=== PATIENT | male | born 1945 | race Caucasian/White ===

== ENCOUNTER 2016-10-30 03:50 | Inpatient (IN) | payer OTHER ==
[~2016-10-30] VITALS: Ht 182.9 cm; Wt 129.3 kg
[~2016-10-30 03:50] MED LIST: AMLODIPINE BESY10 M1 PO; ASPIRIN EC325 MG PO; ATORVASTATIN CA20 MG PO; AUGMENTIN 875 M1 TAB PO; COZAAR50 M1 PO; FLOMAX0.4 M1 PO; PANTOPRAZOLE SO40 M1 PO; PERCOCET 325 MG1 TA2 PO; TRIAMTERENE-HC1 EAC3 PO
--- NOTE | 2016-10-30 10:25 | Operative Report ---
Operative/Inv Procedure Report Surgery Date: 10/30/16 Name of Procedure: C3/4 acdf, use of synthese anterior plating system, use of peek intervertebral device, use of autograft,m use of allograft, use of microscope, use of flouroscope Pre-Operative Diagnosis: cervical myelopathy Post-Operative Diagnosis: same Estimated Blood Loss: less than 50ml Surgeon/Systems Operator: ofelia glover md, DEYSI HAQ,CARISSA Rod Anesthesia: general endotracheal tube Operative/Procedure Note Note: After successful administration of general endotracheal anesthesia all lines tubes and monitors placed by the anesthesia team the patient was positioned supine with his head gently extended his arms taped underside to facilitate radiographic expose the anterior cervical spine. We used the fluoroscope to plan the skin incision the left anterior neck over the C3 4 disc space. The patient was prepped and draped in usual standard fashion and 10 mL of lidocaine with epinephrine was infiltrated in subcutaneous tissues and a #15 blade was used to incise the anterior neck. This was deepened down electrocautery to the platysma, which was divided. Sharp dissection was carried down medial to the carotid sheath lateral to the trachea and esophagus down to the deep cervical fascia. The deep cervical fascia was divided with the bipolar cautery and Bovie electric cautery, we elevated the longus coli bilaterally. We inserted [place] spinal needle C3 4 disc space. Fluoroscope confirm level was confirmed we used a Kerrison and pituitaries to remove the anterior osteophytes. The disc was removed using curettes and pituitary rongeurs, [place] pins were inserted C3 4 bodies and gentle in-line distraction was used. We then brought the microscope in for deep dissection we elevated the PLL with an upgoing curet and removed with a resected with a Kerrison punch provided generous foraminotomies bilaterally with the Kerrison punches and the high-speed drill. The cartilaginous and bony endplates were removed. After satisfied with her bony and ligamentous decompression motors and sensors were stable and trialed 7 mm spacer this the appropriate size. Prepacked the cage with morselized autograft and she was bone matrix putty and tamped in place under fluoroscopic guidance. The [place] pins removed and the holes waxed with bone wax. We then secured in place a 40 mm plate with 4.0 by 16 mm screws. The fluoroscope was used to confirm all hardware position a locking screws were engaged motors and sensors were stable. Then irrigated the wound remove the retractors to separate stab incision #7 MEHNAZ drain the closed wound in layers using 2-0 Vicryl for platysmal 2 -0 Vicryl for deep dermis and skin was closed a running subcuticular address this was applied and the case all needle counts sponge and instruments were correct. The patient was taken to recovery in stable condition
--- NOTE | 2016-10-30 10:50 | Operative Report ---
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 Anesthesia: general endotracheal tube Monitors: Neurophysiologic monitoring IV Fluids: 1.5 L crystalloid Implants: Synthes Vectra plate, peek interbody cage Urine Output: 200 mL via Peters Drains: Medium MEHNAZ Specimens: C3 4 disc material Complications: None Condition: Stable Operative Indication: Patient is a 71-year-old gentleman who presents with progressive cervical myelopathy related to a a central C3 4 disc herniation superimposed on disc osteophyte complexes resulting in a high grade canal stenosis, cord compression, and focal area of cord signal abnormality. Clinical exam is consistent with myelopathy. Patient was previously scheduled for surgery but it was deferred secondary to failed medical preop clearance. Patient subsequently underwent cardiac and pulmonary evaluation and has now been cleared to move forward with the planned procedure. Risks benefits and alternatives have been explained to the patient in detail. He understood and elected to proceed. Written operative consent was obtained. Operative/Procedure Note Note: Patient was taken to the operating room. After appropriate patient identification, neurophysiologic monitoring leads were placed and baseline recordings were obtained. Patient underwent smooth induction of general endotracheal anesthesia without complication. Peters catheter was sterilely inserted. DVT prophylaxis utilized throughout the case. Patient given 1 g IV vancomycin in Preoperative Prophylaxis. he Was Positioned Supine on the Operating Table with the Neck Slightly Extended on a Donut and Shoulders Retracted Downward with Tape. The left Ventral Neck Widely Prepped and Draped Usual Sterile Fashion Using Probe Iodine Solution. A Transverse Linear Skin Incision Was Marked Overlying C3/4 interspace and confirmed with the lateral fluoroscopy skin incision made with a 10 blade knife. Dissection was carried down through the subcutaneous tissue with the Bovie to the platysma which was undermined elevated and divided. Subplatysmal planes were created rostrally and caudally. Medial sternocleidomastoid muscle was identified and the overlying fascia incised. A combination of digital and blunt dissection was used medial to the sternalcleidomastoid and lateral to the trachea and esophagus down to the prevertebral fascia. Fascia was incised with the Bovie and swept off the ventral vertebral bodies with a peanut. Disc spaces were identified. A small gauge spinal needle was placed superficially in the presumed C34 interspace and a lateral fluoroscopic x -ray obtained and confirmed this to be C34. The longus coli muscle was reflected bilaterally and self-retaining retractors were placed beneath the muscle. An annulotomy was made with a 15 blade knife. [place] pins placed in the C3 and C4 vertebral body of the disc space gently distracted. A complete discectomy was performed using combination of straight and angled curettes and pituitary rongeurs. Kerrison rongeurs were used to resect to the endplate osteophytes. Posterior longitudinal ligament was elevated and sequentially resected with the Kerrisons and an excellent decompression of the underlying dural sac and C4 nerve roots completed. With the decompression completed, the cartilaginous endplates were stripped and the endplates of C3 and C4 were decorticated for arthrodesis. After appropriate trials, an 7 mm Synthes axis cage was selected. It was filled with morcellated autograft from the osteophytectomy and DBM and gently tamped into the interspace under direct and fluoroscopic guidance and countersunk by approximately 1-2 mm. [place] pins were removed in a small amount of bone bleeding easily controlled with bone wax. The ventral aspect the C3 and 4 were contoured with the drill to facilitate placement of the anterior plate. 14mm Vectra anterior titanium plate was selected and provisionally placed from C3 to C4 with a plate-holding pin. Under fluoroscopic guidance, the plate was then affixed to the C3 and C4 vertebral bodies using a series of 4 16 mm screws placed with the trajectories slightly divergent from the vertebral endplates and medial. Screws were all finally tightened applying the locking mechanism. Final AP and lateral x-rays were obtained and saved and showed excellent position of the instrumentation. Meticulous hemostasis was achieved. The wound was copiously irrigated. A medium MEHNAZ drain placed into the wound and secured to the skin with a 2-0 nylon suture. Neurophysiologic monitoring was stable and wound closure begun. Platysma was reapproximated with interrupted 2-0 Vicryl suture. The skin was closed in layers with interrupted 2-0 Vicryl suture in the dermis and a running 4-0 Vicryl subcuticular stitch in the skin. The wounds clean and dry. Steri- Strips and a sterile occlusive dressing was placed. Patient was awakened in the operating room, placed in a hard cervical collar, extubated, and taken to PACU in stable condition. He was noted to be moving all 4 extremities at the completion of the case. All sponge, needle, and instrument counts were correct at the completion of the procedure 3. Neurophysiologic monitoring was stable. Discharge Disposition: PACU
--- NOTE | 2016-10-30 13:07 | RADIOLOGY REPORT ---
EXAMINATION: XR CERVICAL SPINE CLINICAL INFORMATION: Anterior cervical discectomy and fusion performed at C3-C4. COMPARISON: CT cervical spine, 07/21/2016. TECHNIQUE: Intraoperative fluoroscopic imaging of the cervical spine was utilized. Number of images: 2. Fluoroscopy time: 0.11 minute FINDINGS: Fluoroscopic imaging assistance was provided 4 C3-C4 discectomy and fusion. Patient is intubated within the operating room. The C3-C4 anterior fusion plate and screws, and intervertebral spacer, are in satisfactory position. The visualized upper cervical vertebra have normal alignment. There is prevertebral soft tissue swelling. IMPRESSION: Intraoperative fluoroscopic images demonstrate expected surgical changes from C3-C4 discectomy and anterior fusion.
--- NOTE | 2016-10-30 14:09 | PN- Neurosurgical ---
Subjective Subjective: Post op check Awake and alert post op Complaining of c collar uncomfortable in the back but otherwise without complaints No surgical pain No nausea Objective Vital Signs and I&Os Intake & Output 10/30 1600 10/30 0810/30 0000 10/29 0810/29 0000 Intake Total Output Total Balance Patient 285 lb Weight Weight Reported by Patient Measurement Method Physical Exam: General: alert and oriented times three chest: clear anteriorly bilaterally, RRR Abd: soft, positive bs Ext: warm, no edema, positive sensate all 4 ext, good 5/5 ALLYN all 4 ext, no calf tenderness Wound: dressed, dry MEHNAZ: small amount of serosang output in bulb Urine: await void post op Current Medications: Current Medications Sig/Neena Start time Last Medication Dose Route Stop Time Status Admin Acetaminophen 650 MG Q4P PRN 10/30 1115 AC PO Acetaminophen/ 1 TAB Q4P PRN 10/30 1115 AC Hydrocodone Bitart PO Acetaminophen/ 2 TAB Q4P PRN 10/30 1115 AC 10/30 Hydrocodone Bitart PO 1334 Bisacodyl 10 MG DAILY NEEDED PRN 10/30 1115 AC VT Diazepam 5 MG Q8P PRN 10/30 1115 AC PO Docusate Sodium 100 MG BID 10/30 2200 AC PO Heparin Sodium 5,000 UNIT Q8 10/31 0600 AC (Porcine) SC Hydromorphone HCl 1 MG Q6P PRN 10/30 1130 AC IV Ondansetron HCl 4 MG Q6P PRN 10/30 1115 AC IV Sodium Chloride 1,000 ML Q12H 10/30 1115 AC 10/30 IV 10/31 1114 1335 Vancomycin HCl 1,000 MG 0800,10/30 AC Sodium Chloride 250 ML IV 11/01 0859 Assessment/Plan Assessment/Plan 71 yo male s/p acdf await void Pain management - vicodin/dilaudid for breakthrough valium prn vanco while drain is in place drain to bulb suction c collar at all times - may change to soft collar while sleeping Core Measures/Miscellaneous Venous Thromboembolism VTE Risk Factors: Age > 40, Surgery VTE Contraindications: No Contraindications VTE Diagnosis: No Beta Bruce Is Beta Brcue a Home Med? No Antibiotics Is Patient on Antibiotics? Yes If Yes: prophylaxis (while surgical drain in place)
[2016-10-30 14:48] VITALS: BP 132/80
[2016-10-30 23:33] VITALS: BP 124/80
[2016-10-31 04:48] VITALS: BP 148/80
--- NOTE | 2016-10-31 07:19 | PN- Neurosurgical ---
Subjective Subjective: Patient acknowledges some incisional tenderness and throat pain when swallowing but overall states that he feels well. He had discomfort with hard collar when supine and was switched to soft collar for sleeping, he noted an improvement. He acknowledges some minor discomfort to bilateral upper extremities but he states that it is a significant improvement compared to preoperative pain. He denies chest pain, shortness of breath and difficulty breathing. He denies nausea and vomitting, but states that he does have a history of acid reflux and was mildly symptomatic overnight. His discomfort improved with TUMS. He has been voiding spontaneously, he has not moved his bowels but he acknowledges passing small amounts of flatus. Objective Vital Signs and I&Os Vital Signs Date Time Temp Pulse Resp B/P B/P Pulse O2 O2 Flow FiO2 Mean Ox Delivery Rate 10/31 0448 98.1 68 20 148/80 96 Nasal 2.0L Cannula 10/31 0000 Nasal 3.0L Cannula 10/30 2333 97.9 68 18 124/80 95 Nasal 3.0L Cannula 10/30 1646 Nasal 3.0L Cannula 10/30 1448 97.7 64 20 132/80 95 Nasal 3.0L Cannula Intake & Output 10/31 0800 10/31 0000 10/30 1600 10/30 0800 10/30 0000 10/29 1600 Intake Total 640 1240 Output Total 260 480 Balance 380 760 Intake, IV 640 640 Intake, Oral 600 Output, 10 30 Drainage Output, Urine 250 450 Patient 285 lb Weight Weight Reported by Patient Measurement Method Physical Exam: General: Alert and oriented x3, no acute distress Cardiac: RRR, s1s2 Pulm: C T A bilaterally Abdomen: Non-tender, non-distended Extremities: Moves all extremities, distal sensation intact bilaterally. Bilateral hand color depositing machine tender 5/5. Skin warm and well perfused. Bilateral calves soft and non-tender. Surgical site: Dressing dry and intact, MEHNAZ drain holding suction with small amounts of serosanguinous drainage. Assessment/Plan Assessment/Plan This is a 71 year old male, POD 1, s/p ACDF. PMH sig for htn and bph -Continue current pain regimen -Continue home medications -Continue soft collar when sleeping, hard collar during day -OOB -D/C IV fluids -D/C drain when output less than 15 cc/shift, continue iv abx until drain out -Consider d/c to home pending drain output -Will d/w Dr. Cheng Core Measures/Miscellaneous Venous Thromboembolism VTE Risk Factors: Age > 40, Surgery VTE Contraindications: No Contraindications VTE Diagnosis: No Beta Bruce Is Beta Bruce a Home Med? No Antibiotics Is Patient on Antibiotics? Yes If Yes: prophylaxis (while surgical drain in place)
--- NOTE | 2016-10-31 07:40 | PN- Neurosurgical ---
See Addendum Subjective Subjective: Pt doing well. Has no signif complaints this am. Slept well. Objective Vital Signs and I&Os Vital Signs Date Time Temp Pulse Resp B/P B/P Pulse O2 O2 Flow FiO2 Mean Ox Delivery Rate 10/31 0448 98.1 68 20 148/80 96 Nasal 2.0L Cannula 10/31 0000 Nasal 3.0L Cannula 10/30 2333 97.9 68 18 124/80 95 Nasal 3.0L Cannula 10/30 1646 Nasal 3.0L Cannula 10/30 1448 97.7 64 20 132/80 95 Nasal 3.0L Cannula Intake & Output 10/31 0800 10/31 0000 10/30 1600 10/30 0800 10/30 0000 10/29 1600 Intake Total 640 1240 Output Total 260 480 Balance 380 760 Intake, IV 640 640 Intake, Oral 600 Output, 10 30 Drainage Output, Urine 250 450 Patient 129.274 kg Weight Weight Reported by Patient Measurement Method Physical Exam: Pt AF, VSS awake and alert speech clear with min hoarseness. Neck soft and supple, no collection or swelling moving all 4 extrem with good power, reports no sensory loss to LT in UE or LE this am voiding on own, using BR with assistance dionicio po - had egg salad sandwich last night in soft collar MEHNAZ with 10cc serosanguinous dc over night Current Medications: Current Medications Sig/Neena Start time Last Medication Dose Route Stop Time Status Admin Acetaminophen 650 MG Q4P PRN 10/30 1115 AC PO Acetaminophen/ 1 TAB Q4P PRN 10/30 1115 AC Hydrocodone Bitart PO Acetaminophen/ 2 TAB Q4P PRN 10/30 1115 AC 10/31 Hydrocodone Bitart PO 0127 Amlodipine Besylate 10 MG DAILY 10/31 1000 AC PO Bisacodyl 10 MG DAILY NEEDED PRN 10/30 1115 AC MI Calcium Carbonate 500 MG DAILY 10/30 1930 AC 10/30 PO 2020 Diazepam 5 MG Q8P PRN 10/30 1115 AC 10/30 PO 1523 Docusate Sodium 100 MG BID 10/30 2200 AC 10/30 PO 2120 Heparin Sodium 5,000 UNIT Q8 10/31 0600 AC 10/31 (Porcine) SC 0544 Hydromorphone HCl 1 MG Q6P PRN 10/30 1130 AC IV Losartan Potassium 50 MG DAILY 10/31 1000 AC PO Ondansetron HCl 4 MG Q6P PRN 10/30 1115 AC IV Pantoprazole Sodium 40 MG DAILY AC 10/31 0719 AC IV Patient Medication 1 ED .STK-MED ONE 10/30 1420 NE Teaching ED 10/30 1421 Patient Medication 1 ED .STK-MED ONE 10/30 1411 NE Teaching ED 10/30 1412 Sodium Chloride 1,000 ML Q12H 10/30 1115 DC 10/31 IV 10/31 1114 0129 Tamsulosin HCl 0.4 MG DAILY 10/31 1000 AC PO Triamterene/HCTZ 1 CAP DAILY 10/31 1000 AC PO Vancomycin HCl 1,000 MG 08,10/30 AC 10/30 Sodium Chloride 250 ML IV 11/01 Assessment/Plan Assessment/Plan Pt is stable POD1 s/p C3/4 ACDF and doing well. Mildly improved neuro exam c/w preop. Plan: -dc MEHNAZ, abx -IS to bedside, use 10x per hr -OOB with walker -home later today -fu with me 2 weeks -no driving, cover incision for showers, no lift more than 5 pounds -hard collar OOB, soft OK for sleep Core Measures/Miscellaneous Venous Thromboembolism VTE Risk Factors: Age > 40, Surgery VTE Contraindications: No Contraindications VTE Diagnosis: No Beta Bruce Is Beta Bruce a Home Med? No Antibiotics Is Patient on Antibiotics? Yes If Yes: prophylaxis (while surgical drain in place)
--- NOTE | 2016-10-31 07:45 | NUR ---
SABAS NOTE: TEDS ORDERED FOR PT. UNSURE IF WE CARRY THE SIZE, DR JO AWARE. PT STATES HE HAS STOCKINGS AT HOME
[2016-10-31] MEDS ORDERED: DOCUSATE SODIU100 M3 PO (07:49)
[2016-10-31] MEDS ORDERED: VALIUM10 M1 PO (07:49)
[2016-10-31] MEDS ORDERED: NORCO 5-325 TA1 EACH PO (07:50)
--- NOTE | 2016-10-31 07:52 | Patient Discharge Instructions ---
Discharge Instructions General Discharge Information You were seen/treated for: Disc herniation C3/4 You had these procedures: Anterior cervical discectomy and fusion C3/4 Watch for these problems: Redness around the incision, fever greater than 101, flulike illness, discharge from the incision, numbness and tingling down the arms or legs, weakness of the arms or legs or loss of function. Do not soak the wound: Yes Daily wet to dry dressings: Yes No bath, but you may shower: Yes Other wound care: Dry sterile dressing or Band-Aid's Change when they are went Special Instructions: incentive spirometer to bedside, use 10x per hr no driving, cover incision for showers, no lift more than 5 pounds hard collar when out of bed, soft collar to be used for sleeping only Take pain medication as needed, Valium as needed for spasm Diet Continue normal diet: Yes Recommended Diet: Heart Healthy Activity Full Activity/No Limits: No Activity Self Limited: Yes Pounds, do NOT lift more than: 5 Acute Coronary Syndrome Inclusion Criteria At DC or during hospital stay patient has or had the following: ACS DIAGNOSIS No Discharge Core Measures Meds if any: Prescribed or Continued at Discharge Meds if any: NOT Prescribed or Continued at Discharge Congestive Heart Failure Inclusion Criteria At DC or during hospital stay patient has or had the following: CHF DIAGNOSIS No Discharge Core Measures Meds if any: Prescribed or Continued at Discharge Meds if any: NOT Prescribed or Continued at Discharge Cerebrovascular accident Inclusion Criteria At DC or during hospital stay patient has or had the following: CVA/TIA Diagnosis No Discharge Core Measures Meds if any: Prescribed or Continued at Discharge Meds if any: NOT Prescribed or Continued at Discharge Venous thromboembolism Inclusion Criteria VTE Diagnosis No VTE Type NONE VTE Confirmed by (Test) NONE Discharge Core Measures - Per Current guidelines, there needs to be overlap - treatment for the first 5 days of Warfarin therapy. - If discharged on Warfarin prior to 5 days of - overlap therapy, the patient will need to be - assessed for post discharge needs including - *Post discharge parental anticoagulation - *Warfarin and/or parental anticoagulation education - *Follow up date to check INR post discharge At least 5 days overlap therapy as Inpatient No Meds if any: Prescribed or Continued at Discharge Note: Overlap Therapy is Warfarin and Anticoagulant Meds if any: NOT Prescribed or Continued at Discharge
--- NOTE | 2016-10-31 08:14 | Surgical Discharge Summary ---
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, spondylosis, progressive cervical myelopathy Medical History Blood Transfusion Hx: No Neurological: NONE EENT: NONE Cardiovascular: hypertension Respiratory: NONE Gastrointestinal: NONE Hepatic: NONE Renal: NONE Musculoskeletal: CHRONIC BACK PAIN Psychiatric: NONE Endocrine: NONE Blood Disorders: NONE Cancer(s): NONE 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 Home Who Do You Live With? Family Services at Home: None What is Your Primary Language? 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 He tolerated the procedure well without complications. Postoperatively he was transferred to the floor, he was treated with vancomycin for prophylactic antibiotics for infection, placed in a cervical collar, given pain medication and Valium, incentive spirometry at bedside. His MEHNAZ drain was pulled postop day 1, he had no complications. He was evaluated by the neurosurgeon postop day 1 and deemed stable for discharge. 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 Jo in 2 weeks Soft collar on while in bed, hard collar on when ambulatory. Pain medication and spasm medication as needed. Stool softeners as needed to avoid constipation while taking pain medication. Watch for signs of infection such as redness swelling discharge pain from the wound, fever greater than 101. Watch for any worsening signs of neurologic compromise such as weakness or numbness in the extremities. Shower but do not submerge wound, change Band-Aids as needed and when wet. Medications at Discharge Discharge Medications: Continue taking these medications: Amlodipine Besylate (Amlodipine Besylate) 10 MG TABLET 1 Tablet ORAL DAILY Pantoprazole Sodium (Pantoprazole Sodium) 40 MG TABLET.DR 1 Tablet ORAL DAILY Tamsulosin HCl (Flomax) 0.4 MG CAP.ER.24H 1 Capsule ORAL DAILY Losartan Potassium (Cozaar) 50 MG TABLET 1 Tablet ORAL DAILY Triamterene/Hydrochlorothiazid (Triamterene-Hctz 37.5-25 MG Cp) 37.5 MG-25 MG CAPSULE 1 Capsule ORAL DAILY Start taking the following new medications: Diazepam (Valium) 10 MG TABLET 5 Milligram ORAL EVERY 8 HOURS NEEDED as needed for SPASM Qty = 30 No Refills Docusate Sodium (Docusate Sodium) 100 MG CAPSULE 100 Milligram ORAL TWICE DAILY as needed for constipation Qty = 30 No Refills Hydrocodone/Acetaminophen (Sabinal 5-325 Tablet) 5 MG-325 MG TABLET 1-2 Tablet ORAL EVERY 4-6 HOURS NEEDED as needed for pain Qty = 40 No Refills
[2016-10-31 10:31] VITALS: BP 130/70
--- NOTE | 2016-10-31 14:10 | NUR ---
NURSING NOTE" PT C/O SPLITTING HEADACHE; ROB TAYLOR AWARE, IV TORADOL GIVEN, CONT TO MONITOR. PT SEEN BY RETAINING ROOM CUTTER, OK FOR DISHCARGE HOME SELF CARE WHEN PAIN CONTROLED. CONT TO MONITOR.
[2016-10-31 14:43] VITALS: BP 130/70
--- NOTE | 2016-10-31 15:10 | NUR ---
NURSING NOTE: PT READY FOR DC. PAPERWORK COMPLETE,SCRIPTS GIVEN.
== END 2016-10-31 15:23 | DRG 472 ==
LOC: SDA 03:50 → ENRESERV 11:58 → 2NB 13:04 → ENPENDDIS 10-31 08:23 → 2NB 10-31 15:23
PROVIDERS: ADMIT Neurological Surgery
PROC: 0RT30ZZ Resection of Cervical Vertebral Disc, Open Approach (ICD-10-PCS; principal; 2016-10-30)
PROC: 4A11X4G Monitoring of Peripheral Nervous Electrical Activity, Intraoperative, External Approach (ICD-10-PCS; principal; 2016-10-30)
PROC: 0RG10A0 Fusion of Cervical Vertebral Joint with Interbody Fusion Device, Anterior Approach, Anterior Column, Open Approach (ICD-10-PCS; principal; 2016-10-30)
DX: M50.01 Cervical disc disorder with myelopathy, high cervical region (principal); M47.12 Other spondylosis with myelopathy, cervical region; Z68.41 Body mass index [BMI] 40.0-44.9, adult; I10 Essential (primary) hypertension; M48.02 Spinal stenosis, cervical region; M25.78 Osteophyte, vertebrae; K21.9 Gastro-esophageal reflux disease without esophagitis; E66.9 Obesity, unspecified; N40.0 Benign prostatic hyperplasia without lower urinary tract symptoms
CPT/HCPCS: 2NBP; 72040; 88304; C1713; J0131; J1644; J2405; J3370; J7040